=== PATIENT | male | born 1980 | race Caucasian/White ===

== ENCOUNTER 2024-11-16 15:54 | Outpatient (REF) | payer BC, SELFPAY ==
[2024-11-16 21:36] LABS: ALT 34 U/L (16-63); AST 20 U/L (15-37); Albumin 4.4 g/dL (3.4-5.0); Alkaline Phosphatase 108 U/L (46-116); Anion Gap 7.6 mmol/L (3-11); BUN 14 mg/dL (7-18); Bilirubin, Total 0.5 mg/dL (0.2-1.0); CO2 28.4 mmol/L (21.0-32.0); CREATININE 0.9 mg/dL (0.70-1.30); Calcium 9.2 mg/dL (8.5-10.1); Calculated LDL 87 mg/dL (<100); Chloride 105 mmol/L (98-107); Cholesterol 145 mg/dL (<200); Estimated GFR 107.33 (mL/min/1.73m2); Glucose 98 mg/dL (74-106); HDL Cholesterol 39 mg/dL (>or=40); Potassium 4.7 mmol/L (3.5-5.1); Sodium 141 mmol/L (136-145); Total Protein 7.2 g/dL (6.4-8.2); Triglyceride 98 mg/dL (<150)
[2024-11-17 19:25] LABS: HIV-1/2 Ag & Ab Screen Negative (Negative)
[2024-11-17 19:30] LABS: Hepatitis C Ab w Rflx HCV PCR Negative (Negative)
[2024-11-18 12:05] LABS: Syphilis Serology (RPR) Negative (Negative)
== END 2024-11-16 15:55 | disposition home or self-care (01) ==
LOC: LBN 15:54
PROVIDERS: PCP Nurse Practitioner Family; Visit Provider Nurse Practitioner Family
DX: Z11.4 Encounter for screening for human immunodeficiency virus [HIV] (principal); Z11.3 Encounter for screening for infections with a predominantly sexual mode of transmission; Z13.220 Encounter for screening for lipoid disorders; Z11.59 Encounter for screening for other viral diseases
CPT/HCPCS: 80053; 80061; 86803; 87389; 86592

== ENCOUNTER 2024-11-30 00:43 | Outpatient (CLI) | payer BC, SELFPAY ==
[2024-12-01 19:29] LABS: HBs Antibody, Quant >1000.0 mIU/mL (See Note); Hep B Surface Ab Positive (See Note); Hepatitis B Core Antibody Negative (Negative); Hepatitis B Surface Antigen Negative (Negative)
== END 2024-11-30 00:44 | disposition home or self-care (01) ==
LOC: LOS 00:43
PROVIDERS: PCP Nurse Practitioner Family; Visit Provider Nurse Practitioner Family
DX: Z11.59 Encounter for screening for other viral diseases (principal)
CPT/HCPCS: 36415; 86704; 86706; 87340